=== PATIENT | female | born 1945 | race Two or more races ===

== ENCOUNTER 2020-03-07 10:12 | Emergency (ER) | payer OTHER ==
[2020-03-07 10:22] VITALS: BMI 40.6
[2020-03-07 11:24] LABS: BASO % 0.4 % (0-2.0); EOS % 0.1 % (0-4.5); HEMATOCRIT 41.2 % (32.4-45.2); HEMOGLOBIN 13.7 GM/dL (10.7-15.3); LYMPH % 26.5 % (8-40); MCH 29.5 pg (25.7-33.7); MCHC 33.4 g/dl (32.0-36.0); MEAN CELL VOLUME 88.5 fl (80-96); MEAN PLT VOLUME 9.7 fl (7.5-11.1); MONO % 13.1 % (3.8-10.2); NEUT % 59.9 % (42.8-82.8); PLATELET COUNT 174 K/MM3 (134-434); RBC 4.65 M/mm3 (3.60-5.2)
[2020-03-07 12:13] LABS: POTASSIUM 3.7 mmol/L (3.5-5.1)
[2020-03-07 12:17] LABS: ALBUMIN 3.8 g/dl (3.4-5.0); CALCIUM 8.4 mg/dL (8.5-10.1)
[2020-03-07 12:20] LABS: CREATININE 1.1 mg/dL (0.55-1.3)
[2020-03-07 12:22] LABS: BILIRUBIN,TOTAL 0.3 mg/dL (0.2-1); TOT PROT 6.8 g/dl (6.4-8.2)
[2020-03-07] MEDS ORDERED: BAMLANIVIMAB 700 MG in SODIUM CHLORIDE 180 ML IVPB ONE (13:40)
[2020-03-07 15:02] LABS: EPI CELLS 26 /uL (0-25.1); HYALINE CASTS 3 /uL (0-3.1); PH,URINE 6.5 (5.0-8.0); URINE APPEARANCE CLEAR; URINE BACTERIA 227 /uL (0-1359); URINE BILIRUBIN NEGATIVE (NEGATIVE); URINE COLOR YELLOW; URINE GLUCOSE (UA) NEGATIVE (NEGATIVE); URINE KETONE NEGATIVE (NEGATIVE); URINE LEUK ESTERASE NEGATIVE (NEGATIVE); URINE NITRITE NEGATIVE (NEGATIVE); URINE PROTEIN 1+ (NEGATIVE); URINE RBC 26 /uL (0-23.9); URINE WBC 16 /uL (0-25.8)
[2020-03-07 16:05] VITALS: TEMP 98.6
[2020-03-07 16:55] VITALS: BP 105/52; PULSE 76
== END 2020-03-07 17:00 | disposition home or self-care (01) ==
LOC: JER 10:12 → JCOVINFU 10:12
DX: U07.1 COVID-19 (principal)
CPT/HCPCS: 36415; 80053; 81003; 85025; 87086; 99284-25; C9803; M0239; Q0239; U0003